=== PATIENT | male | born 1985 | race Caucasian/White ===

== ENCOUNTER 2022-04-05 16:41 | Emergency (ER) | payer BC, OTHER ==
[~2022-04-05] VITALS: Ht 185.4 cm; Wt 111.1 kg
[2022-04-05 17:09] VITALS: BP 111/78
[2022-04-05] MEDS ORDERED: ONDANSETRON HCL 4 MG/2 ML VIAL IV ONE (17:45)
[2022-04-05] MEDS ORDERED: SODIUM CHLORIDE 0.9% 1,000 ML IV ONE (17:45)
[2022-04-05 19:34] LABS: Basophils # (auto) 0.2 10 ^3/uL (0-0.2); Basophils % (auto) 1.4 % (0.0-2.0); Eosinophils # (auto) 0.1 10 ^3/uL (0-0.8); Eosinophils % (auto) 0.6 % (0.0-7.0); Hematocrit 50.8 % (41.0-53.0); Hemoglobin 16.9 g/dL (13.5-17.5); Lymphocytes # (auto) 0.3 10 ^3/uL (0.4-5.4); Lymphocytes % (auto) 2.8 % (10.0-50.0); Mean Corpuscular Hemoglobin 29.4 pg (28.0-32.0); Mean Corpuscular Hgb Conc. 33.2 g/dL (32.0-36.0); Mean Corpuscular Volume 88.4 fL (80.0-100.0); Monocytes # (auto) 0.3 10 ^3/uL (0-1.3); Monocytes % (auto) 2.7 % (0.0-12.0); Neutrophils # (auto) 10.6 10 ^3/uL (1.6-8.6); Neutrophils % (auto) 92.5 % (37.0-80.0); Nucleated Red Blood Cells % 0.1 %; Red Blood Cells 5.75 10^6/uL (4.5-5.90); Red Cell Distribution Width 12.8 % (11.8-14.3); White Blood Cell 11.4 10^3/uL (4.4-10.8)
[2022-04-05 19:46] LABS: Albumin 3.9 g/dL (3.4-5.0); Potassium 4.2 mmol/L (3.5-5.1)
[2022-04-05 19:50] LABS: BUN/Creatinine Ratio 10.9; Bilirubin, Total 0.7 mg/dL (0.2-1.0); Total Protein 7.3 g/dL (6.4-8.2)
[2022-04-05] MEDS ORDERED: ONDA-144 PO (20:35)
[2022-04-05 22:45] LABS: Urine Bacteria None Seen /hpf (None Seen)
[2022-04-05 23:16] LABS: Urine Blood Normal /uL (Negative); Urine Specific Gravity 1.022 (1.001-1.035)
[2022-04-06 00:32] LABS: Urine WBC 2 /hpf (0 - 3)
== END 2022-04-05 21:16 | disposition home or self-care (01) ==
LOC: ER 16:41
DX: R11.2 Nausea with vomiting, unspecified (principal); R53.1 Weakness; Z88.6 Allergy status to analgesic agent; Z88.2 Allergy status to sulfonamides
CPT/HCPCS: 36415; 70450; 74176; 80053; 81001; 82962; 85025; 93005